=== PATIENT | male | born 1985 ===

== ENCOUNTER 2017-07-16 14:41 | Emergency (ER) | payer MEDICAID, OTHER ==
[~2017-07-16] VITALS: Ht 167.6 cm; Wt 61.2 kg
[2017-07-16] MEDS ORDERED: HYDROMORPHONE 1 MG/1 ML DISP.SYRIN IV ONE (14:45)
--- NOTE | 2017-07-16 15:00 | NUR ---
[facility] AT BEDSIDE.
[2017-07-16] MEDS ORDERED: HYDROMORPHONE 2 MG/1 ML DISP.SYRIN ONE (15:13)
--- NOTE | 2017-07-16 15:32 | NUR ---
Patient discharged to home in stable conditon. Written and verbal after care instructions given. Patient verbalizes understanding of instructions.PT WITH SO. PT CAME WITH CLOTTHING RIPPED BY PARAMEDICS. HOSPITAL CLOTHING PROVIDED.
[2017-07-16 15:35] VITALS: BP 121/81
== END 2017-07-16 15:45 | disposition home or self-care (01) ==
LOC: ER 14:48
DX: S80.12XA Contusion of left lower leg, initial encounter (principal); X58.XXXA Exposure to other specified factors, initial encounter; Y93.89 Activity, other specified; Y92.89 Other specified places as the place of occurrence of the external cause; Y99.8 Other external cause status
CPT/HCPCS: 72170; 73551; A4663; J1170